=== PATIENT | female | born 1945 | race Caucasian/White ===

== ENCOUNTER 2018-06-13 05:42 | Day surgery (SDC) | payer OTHER ==
[~2018-06-13 05:42] MED LIST: CEFAZOLIN 2 GM/50 ML (PMX) 50 ML IVPB
[2018-06-13] MEDS ORDERED: MIDAZOLAM 1 MG/ML 2 ML INJ (07:36)
[2018-06-13] MEDS ORDERED: PHENYLephrine (100 MCG/ML) 5ML SYG (07:56)
[2018-06-13] MEDS: BUPIVACAINE 0.5%/EPI (SDV) 30 ML INJ (09:14)
[2018-06-13] MEDS: LIDOCAINE 1% (STERILE-PAK) 30 ML INJ (09:15)
[2018-06-13] MEDS ORDERED: ROCURONIUM 50 MG INJ (09:51)
[2018-06-13] MEDS ORDERED: CEFAZOLIN 1 GM INJ (09:51)
[2018-06-13] MEDS ORDERED: PROPOFOL 0 ML (09:51)
[2018-06-13] MEDS ORDERED: LIDOCAINE 100 MG SYRINGE (09:51)
[2018-06-13] MEDS ORDERED: ETOMIDATE 20 MG INJ (09:52)
[2018-06-13] MEDS ORDERED: ONDANSETRON 4 MG INJ (09:53)
[2018-06-13] MEDS ORDERED: GLYCOPYRROLATE 0.4 MG INJ (09:59)
[2018-06-13] MEDS ORDERED: NEOSTIGMINE 3 MG/3 ML SYRINGE (09:59)
[2018-06-13] MEDS ORDERED: HYDROmorphONE 1 MG/5 ML IV SYRINGE IV (10:14)
[2018-06-13] MEDS ORDERED: LABETALOL HCL 20MG INJ IV (10:30)
[2018-06-13] MEDS ORDERED: hydrALAzine 20 MG INJ IV (10:30)
[2018-06-13] MEDS ORDERED: ONDANSETRON 4 MG INJ IV (10:30)
[2018-06-13] MEDS ORDERED: DIPHENHYDRAMINE 50 MG INJ IV (10:30)
[2018-06-13] MEDS ORDERED: METOCLOPRAMIDE 10 MG INJ IV (10:30)
[2018-06-13] MEDS ORDERED: FENTAnyl 50 MCG/ML VIAL IV (10:30)
[2018-06-13] MEDS ORDERED: ALBUTEROL 0.083% (NEB) 2.5 MG/3 ML AMP HHN (10:30)
[2018-06-13] MEDS: HYDROmorphONE 1 MG/5 ML IV SYRINGE IV ×2 (10:47→10:49)
== END 2018-06-13 12:55 | disposition home or self-care (01) ==
LOC: SDS 05:42
DX: K42.9 Umbilical hernia without obstruction or gangrene (principal); E11.9 Type 2 diabetes mellitus without complications; I10 Essential (primary) hypertension; E78.5 Hyperlipidemia, unspecified; E66.01 Morbid (severe) obesity due to excess calories; Z68.34 Body mass index [BMI] 34.0-34.9, adult
CPT/HCPCS: 49652; 88302; 88304